=== PATIENT | female | born 1985 | race Two or more races ===

== ENCOUNTER → 2023-11-26 11:25 | Outpatient (REF) | payer BC, SELFPAY | LOC: RAD 11:25 | PROVIDERS: ATTENDING PHYSICIAN Obstetrics & Gynecology; FAMILY PHYSICIAN Internal Medicine | DX: R19.00 Intra-abdominal and pelvic swelling, mass and lump, unspecified site (principal) | CPT/HCPCS: 76830; 76856 ==

== ENCOUNTER → 2023-12-22 15:44 | Outpatient (REF) | payer BC, SELFPAY | LOC: RAD 15:44 | PROVIDERS: ATTENDING PHYSICIAN Physician Assistant Medical | DX: R19.00 Intra-abdominal and pelvic swelling, mass and lump, unspecified site (principal) | CPT/HCPCS: 72193; Q9967 ==

== ENCOUNTER → 2024-01-13 19:32 | Outpatient (REF) | payer BC, SELFPAY | LOC: MRI 19:32 | PROVIDERS: ATTENDING PHYSICIAN Physician Assistant Medical; FAMILY PHYSICIAN Internal Medicine; REFERRING PHYSICIAN Obstetrics & Gynecology | DX: D48.9 Neoplasm of uncertain behavior, unspecified (principal) | CPT/HCPCS: 72197; A9575 ==

== ENCOUNTER → 2024-03-17 17:40 | Outpatient (REF) | payer BC, SELFPAY | LOC: CLAB 17:40 | PROVIDERS: ATTENDING PHYSICIAN Obstetrics & Gynecology | DX: D27.9 Benign neoplasm of unspecified ovary (principal) | CPT/HCPCS: 88305; 88307 ==

== ENCOUNTER → 2024-08-16 19:10 | Outpatient (REF) | payer BC, SELFPAY | LOC: WDC 19:10 | PROVIDERS: ATTENDING PHYSICIAN Obstetrics & Gynecology | DX: Z12.31 Encounter for screening mammogram for malignant neoplasm of breast (principal) | CPT/HCPCS: 77063; 77067 ==